=== PATIENT | female | born 1985 | race Caucasian/White ===

== ENCOUNTER 2016-09-17 10:58 | Emergency (ER) | payer OTHER ==
[~2016-09-17] VITALS: Ht 165.1 cm; Wt 72.0 kg
[~2016-09-17 10:58] MED LIST: CYCL-319 PO; IBUP-1542 PO
[2016-09-17 11:03] VITALS: Ht 165.1 cm; Wt 72.0 kg
[2016-09-17] MEDS ORDERED: PEN500 PO (12:21)
[2016-09-17] MEDS ORDERED: IBUP-1542 PO (12:22)
--- NOTE | 2016-09-17 12:26 | ERD ---
ER Documentation Chief Complaint Date/Time DATE: 09/17/16 TIME: 12:23 Chief Complaint EAR PAIN , SORE THROAT , COUGH X 4 DAYS HPI Patient is a 31-year-old female with no significant for Past medical history who presents to the ED with sore throat and ear pain for 4 days. She states that she has pain with swallowing however she is able to tolerate fluids and food. She denies cough. Denies fever or chills. Denies abdominal pain, nausea , vomiting or diarrhea. She denies constipation. She denies chest pain, cough , shortness of breath or difficulty breathing. She is not taking any medication for symptoms besides ibuprofen which is helped with her pain. No other complaints. ROS All systems reviewed and are negative except as per history of present illness. Medications Home Meds Active Scripts Ibuprofen* (Motrin*) 600 Mg Tab, 600 MG PO Q6, #30 TAB Prov:RAMANDEEP DAVIS PA-C 09/17/16 Penicillin V Potassium* (Penicillin V K*) 500 Mg Tab, 500 MG PO BID for 10 Days , TAB Prov:RAMANDEEP DAVIS PA-C 09/17/16 Cyclobenzaprine Hcl* (Cyclobenzaprine Hcl*) 10 Mg Tablet, 10 MG PO TID, #20 TAB Prov:EZIO HEREDIA PA-C 10/18/15 Ibuprofen* (Motrin*) 600 Mg Tab, 600 MG PO Q6H Y for PAIN, #30 TAB Prov:EZIO HEREDIA PA-C 10/18/15 Allergies Allergies: Coded Allergies: clindamycin (Verified Allergy, Unknown, swelling, 10/18/15) PMhx/Soc Medical and Surgical Hx: pt denies Medical Hx, pt denies Surgical Hx History of Surgery: No Anesthesia Reaction: No Hx Neurological Disorder: No Hx Respiratory Disorders: No Hx Cardiac Disorders: No Hx Psychiatric Problems: No Hx Miscellaneous Medical Probl: No Hx Alcohol Use: No Hx Substance Use: No Hx Tobacco Use: No Physical Exam Vitals Vital Signs Date Time Temp Pulse Resp B/P Pulse Ox O2 Delivery O2 Flow Rate FiO2 09/17/16 11:03 99.1 78 18 126/60 99 Physical Exam GENERAL: Well-developed, well-nourished female. Appears in no acute distress. HEAD: Normocephalic, atraumatic. EYES: Pupils are equally reactive bilaterally. EOMs grossly intact. No conjunctival erythema. ENT: Moist mucous membranes. No uvula deviation. No kissing tonsils. bilateral exudates with no enlarged tonsils. NECK: Supple. slight anterior cervical lymphadenopathy. No meningismus. negative kernig. negative brudinski. LUNG: Clear to auscultation bilaterally. No rhonchi, wheezing, rales or coarse breath sounds. HEART: Regular rate and rhythm. No murmurs, rubs or gallops. SKIN: Normal color. Warm and dry. No rashes or lesions. Capillary refill < 2 seconds Procedures/MDM ER COURSE: I kept the patient and/or family informed of laboratory and diagnostic imaging results throughout the emergency room course. MEDICAL DECISION MAKING: This is a 31-year-old female who presents with sore throat 4 days. Vital signs were reviewed. Patient is afebrile. Patient is not hypoxic. Patient is not toxic or ill-appearing. Based on [employer] criteria patient has 2 points. I will be treating the patient pharyngitis, likely strep. Low suspicion for peritonsillar abscess, , mononucleosis, dental abscess. Low suspicion for pneumonia, PE, pneumothorax, ACS, epiglottitis, obstruction, TB, pertussis, meningitis, sepsis. DISCHARGE: At this time, patient is stable for discharge and outpatient management with no new complaints during the ER course. Patient was sent home with penicillin VK and Motrin. Patient will be discharged home with instructions to recheck for new or worsening symptoms such as fever, nausea, weakness, LOC and to follow up with primary care in the next 1-2 days. Patient was advised to return to the ER for any new or worsening symptoms. Plan was discussed and patient and/or family understands and agrees. Home instructions were given. Departure Diagnosis: Primary Impression: Pharyngitis Pharyngitis/tonsillitis etiology: unspecified etiology Qualified Code: J02.9 - Pharyngitis, unspecified etiology Condition: Stable Patient Instructions: Pharyngitis, Strep (Presumed) Additional Instructions: Call your primary care doctor TOMORROW for an appointment during the next 1-2 days.See the doctor sooner or return here if your condition worsens before your appointment time. RAMANDEEP DAVIS PA-C Sep 17, 2016 12:26
== END 2016-09-17 12:38 | disposition home or self-care (01) ==
LOC: FTE 10:58
DX: J02.9 Acute pharyngitis, unspecified (principal)
CPT/HCPCS: 99283